=== PATIENT | female | born 1965 | race Caucasian/White ===

== ENCOUNTER 2020-10-05 14:07 | Outpatient (CLI) | payer BC ==
--- NOTE | 2020-10-05 14:48 | ULT ---
Focused ultrasound of the left axilla: 10/05/2020 HISTORY: Palpable abnormality in the left axilla. FINDINGS: 9 provided sonographic images of the left axillary region provided. No enlarged lymph node, fluid collection, or mass lesion is evident. IMPRESSION: Unremarkable focused ultrasound of the left axilla. If symptoms persist, CT advised. Transcribed Date/Time: 10/05/2020 3:11 PM
== END 2020-10-05 14:08 | disposition home or self-care (01) ==
LOC: BICMAMMO 14:07
PROVIDERS: ATTEND Obstetrics & Gynecology
DX: N63.32 Unspecified lump in axillary tail of the left breast (principal)
CPT/HCPCS: 76999